=== PATIENT | female | born 2000 | race African-American/Black ===

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

== ENCOUNTER 2021-11-24 13:09 | Emergency (ER) | payer BC, SELFPAY ==
[2021-11-24 13:25] VITALS: BP 125/78; PULSE 72; RESP 18; TEMP 37; O2SAT 100; BMI 28.3
[2021-11-24 13:36] LABS: UTC Pregnancy Test, Urine Negative (Negative)
--- NOTE | 2021-11-24 13:43 | HMH.EDUTC ---
[facility] Disposition Clinical Impression: Gastroenteritis Disposition: Home, Self-Care Condition on Discharge: Good Instructions: Viral Gastroenteritis, DI for Viral Gastroenteritis -- Adult, Gastroenteritis Diet, Ondansetron Additional Instructions: Drink plenty of fluids. Take tylenol or ibuprofen for pain or fever. Take the zofran if you have continued nausea. Follow up with your regular doctor. GO TO THE ER FOR ANY WORSENING SYMPTOMS Prescriptions: Ondansetron [Zofran 4mg ODT] 4 mg PO Q8HP PRN #20 tab PRN Reason: Nausea Transmission Status: Received by [id number] Referrals: Provider,Referral, [Primary Care Provider] - Time of Disposition: 13:45 Medical Decision Making - Medical Records Medical records reviewed: No: I reviewed the patient's medical records. - Sami Inquiry Pt receiving controlled substance: No Vital Signs: 11/24/21 13:25 11/24/21 13:48 Temperature 98.6 F 98.6 F Temperature Source Oral Pulse Rate 72 Pulse Rate [Left Radial] 72 Respiratory Rate 18 18 Blood Pressure 125/78 Blood Pressure [Right Arm] 125/78 Blood Pressure Mean [Right Arm] 93 02 Sat by Pulse Oximetry 100 - Lab Data Lab Results 11/24/21 13:28: Tst Clinic Negative [facility] HPI - General Stated complaint: nausea/vomiting Time Seen by Provider: 11/24/21 13:30 Description of Symptoms (Recalled from Triage Doc. by RN): patient comes in today for test and std check. patient did have chlymadia previously and took the medicine, wants to recheck to see if she got rid of it. HEENT Symptoms (Recalled from RN notes): No Resp Symptoms (Recalled from RN notes): No Skin Symptoms (Recalled from RN notes): No MS Symptoms (Recalled from RN notes): No Functional Status (Recalled from RN notes): wnl - History of Present Illness Provider Complaint: She states that earlier today she had a period of gi upset, n/v. She denies any abdominal pain. She states that she is feeling better since since she got here. - Related Data Home Medications Medication Instructions Recorded Confirmed fluoxetine 10 mg capsule 10 mg PO ONCE 10/18/17 Previous Rx's Medication Instructions Recorded Ondansetron [Zofran 4mg ODT] 4 mg PO Q8HP PRN #20 tab 11/24/21 Allergies Allergy/AdvReac Type Severity Reaction Status Date / Time No Known Allergies Allergy Unverified 10/18/17 08:44 - Worker's Comp Is this a Worker's Comp case?: No [facility] History - Hepatitis A Screen Attestation statement:: This patient has been screened for Hepatitis A risk factors. I have reviewed the patient's past medical history: Yes Medical History: Reports:: Depression Denies:: Anxiety, Asthma, Diabetes Mellitus Type 1, Diabetes Mellitus Type 2, Hyperlipidemia, Hypertension Laterality Cases: Bilateral: Tonsillectomy Amputation: No - Social History Smoking Status: Never smoker # Packs/Day (cigarettes): 0 #Yrs smoked (if former smoker): 0 Alcohol Intake: never Alcohol Intake Frequency:: other - Psychiatric History Pschychiatric History:: Reports:: Depression Denies:: Anxiety Family Hx:: Diabetes ROS Obtained: Yes All systems reviewed & no additional complaints - Constitutional Constitutional: Denies chills, Denies fever(s), Reports poor appetite, Denies malaise - Eyes Eyes: Denies eye discharge - ENT Ears, Nose, Mouth, and Throat: Denies pain with swallowing, Denies sore throat - Cardiovascular Cardiovascular: Denies chest pain - Respiratory Respiratory: Denies chest congestion, Denies cough - Gastrointestinal Gastrointestingal: Reports: as per HPI - Musculoskeletal Musculoskeletal: Denies back pain - Integumentary/Breasts Skin/Breast: Denies rash Physical Exam - General General appearance: alert, in no apparent distress - Head Head exam: atraumatic, normocephalic, normal inspection - Eye Eye exam: Present: normal appearance, PERRL, EOMI - ENT
[2021-11-24 13:48] VITALS: BP 125/78; PULSE 72; RESP 18; TEMP 37
[2021-11-25 21:09] LABS: Neisseria gonorrhoeae, NAA Negative (Negative)
== END 2021-11-24 13:48 | disposition home or self-care (01) ==
PROVIDERS: Emergency Provider Nurse Practitioner Family
DX: K52.9 Noninfective gastroenteritis and colitis, unspecified (principal)
CPT/HCPCS: 81025; 87491; 87591; 99212; G0463

== ENCOUNTER 2025-04-16 11:33 | Emergency (ER) | payer BC, SELFPAY ==
--- OUTSIDE RECORDS SUMMARY | 2024-04-13 09:00 | XMS_ITS ---
Author Organization [facility] Address [address] [place] [address] Care Team Providers Care Director Of Vendor Management Name Role Phone NO PCP Primary Care Provider Joanna Rocha Unavailable REASON FOR VISIT Tuberculosis (TB) / PPD Test Encounters Encounter Location Date Provider Diagnosis [address] [facility] [address] [place] [id number] 04/13/2024 Joanna Moya Plan Of Treatment No Information Progress Notes * Bushra BRIGHTDOB:2000 (24 yo F)Acc No.[id number]:04/13/2024 Patient: Bushra KEITH Provider: Jose D Moya DNP :2000 A ge:23 Y S ex:Female Date:04/13/2024 External Visit ID:[id number] [facility] [facility] Pcp:NO PCP Subjective: * Chief Complaints: * 1 . Tuberculosis (TB) / PPD Test. * Medical History: Objective: * Vitals: Assessment: Plan: * Treatment: * Billing Information: * Visit Code: * Procedure Codes: Care Plan Details* * Electronic signature of Yudi Moya APRN on 04/16/2025 at 11:18 AM PANTOGRAPH OPERATOR Sign off status: Pending * Provider: Jose D Moya DNP Date: 06/13/2023 Generated for Printi ng/Faxing/eTransmitting on: 06/16/2024 11:18 AM PANTOGRAPH OPERATOR
--- OUTSIDE RECORDS SUMMARY | 2025-02-26 05:45 | XMS_ITS ---
Author Organization [facility] Address [address] [place] [address] Care Team Providers Care Newspaper Carrier Name Role Phone NO PCP Primary Care Provider Zamzam Abdi Unavailable [phone] REASON FOR VISIT ppd Encounters Encounter Location Date Provider Diagnosis [address] [place] [address] 02/26/2025 Zamzam Kenney Plan Of Treatment No Information Progress Notes * EMY, BushraDOB:2000 (24 yo F)Acc No.[id number]:02/26/2025 Progress Notes Patient: Bushra KEITH Provider: Abdulkadir Kenney APRN :2000 A ge:24 Y S ex:Female Date:02/26/2025 [address] [facility] Pcp:PCP Unknown Subjective: * Chief Complaints: * 1 . Ppd. * Medical History: Objective: * Vitals: Assessment: Plan: * Treatment: * Procedure Codes: N OSHO No Show Fee * Billing Information: * Visit Code: * Procedure Codes: NOSHO No Show Fee. Care Plan Details* * Sign off status: Completed true * Provider: Abdulkadir Kenney APRN Date: 0 02/26/2025 Generated for Monalisai ng/Fajoannag/eTransmitting on: 06/16/2024 11:17 AM BIOMEDICAL PHOTOGRAPHER
--- OUTSIDE RECORDS SUMMARY | 2025-02-27 05:45 | XMS_ITS ---
Author Organization [facility] Address [address] [place] [address] Care Team Providers Care Dressage Instructor Name Role Phone NO PCP Primary Care Provider Cary Brock Unavailable [phone] REASON FOR VISIT tb skin test Immunizations Vaccine Route Administration Date Status Comme nts PPD Aplisol ID Intradermal 02/27/2025 Administered Encounters Encounter Location Date Provider Diagnosis [facility] [address] [facility] [address] [place] [address] 02/27/2025 Cary Sanches PPD screening test Z11.1 Assessments Encounter Date Diagnosis (ICD Code) Assessment Notes Treatment Notes Treatment Clinical Notes Section Notes 02/27/2025 PPD screening test (ICD-10 - Z11.1) Patient reports they have never had a positive ppd reaction. Plan Of Treatment Treatment Notes Assessment Notes PPD screening test Patient reports they have never had a positive ppd reaction. Next Appt Details Follow Up: Please return to the clinic within 48-72 hours during the hours of business, Reason: Progress Notes * Bushra BRIGHTDOB:2000 (24 yo F)Acc No.[id number]:02/27/2025 Screening Visit Progress Not e Patient: Bushra KEITH Provider: Az Sanches :2000 A ge:24 Y S ex:Female Date:02/27/2025 Address:[address] [facility] Pcp:PCP Unknown Subjective: * Chief Complaints: * 1 . Tb skin test. * Medical History: Objective: * Vitals: Assessment: * Assessment: 1. P PD screening test - Z11.1 (Primary) Plan: * Treatment: * Immunizations: PPD Aplisol : 0.1 mL (Dose No:1) (Route: Intradermal) given by Cary Sanches APRN on Left Lower Forearm (PPD screening test) * Procedure Codes: 8 6580 TB SKIN TEST (APLISOL) * Follow Up: P lease return to the clinic within 48-72 hours during the hours of business * Billing Information: * Visit Code: * Procedure Codes: 94159 TB SKIN TEST (APLISOL). Care Plan Details* * Sign off status: Completed true * Provider: Az Sanches Date: 0 02/27/2025 Generated for Sergio ogden/Maria L/Marvin on: 06/16/2024 11:18 AM HISTORICAL ARCHEOLOGIST
--- OUTSIDE RECORDS SUMMARY | 2025-03-02 06:15 | XMS_ITS ---
Author Organization [facility] Address [address] [place] [address] Care Team Providers Care Director Gift Name Role Phone NO PCP Primary Care Provider Unavailmaribel e Joanna Moya Unavailable REASON FOR VISIT PPD read Encounters Encounter Location Date Provider Diagnosis [facility] [address] [facility] [address] [place] [address] 03/02/2025 Joanna Moya PPD screening test Z11.1 Assessments Encounter Date Diagnosis (ICD Code) Assessment Notes Treatment Notes Treatment Clinical Notes Section Notes 03/02/2025 PPD screening test (ICD-10 - Z11.1) Document patient's PPD results in their immunization history and import PPD results from the right chart panel (ICW). Scan PPD result form into patient's chart. Plan Of Treatment Next Appt Details Follow Up: As needed, Reason : Progress Notes * Bushra BRIGHTDOB:2000 (24 yo F)Acc No.[id number]:03/02/2025 Screening Visit Progress Not e Patient: Bushra KEITH Provider: Jose D Moya DNP :2000 A ge:24 Y S ex:Female Date:03/02/2025 Address:[address] [place], [place]-[address] Pcp:NO PCP Subjective: * Chief Complaints: * 1 . PPD read. * HPI: P PD Skin Test: Patient presents for a PPD skin test read. PPD Skin Test Results I mpression N egative, I nduration 0 mm, D ate 0 03/02/2025, T charlie 1 1:30 AM. * ROS: C ONSTITUTIONAL: feels well y es. * Medical History: Objective: * Vitals: * Examination: F ocused Exam: GENERAL: a lert and oriented x 4, no acute distress, dress appropriate for the environment & temp, well-groomed, appears well. Assessment: * Assessment: 1. P PD screening test - Z11.1 (Primary) Plan: * Treatment: * Procedure Codes: C ODER Sending to Distribution Systems Superintendent for Code Review * Follow Up: A s needed * Billing Information: * Visit Code: 98856 Office Visit, Est Pt., Level 1. * Procedure Codes: FINISHED GARMENT INSPECTOR Sending to Distribution Systems Superintendent for Code Review. Care Plan Details* Images * 03.02.25 id 03.02.25 PPD skin test resul ts * Sign off status: Completed true * Provider: Jose D Moya DNP Date: 0 03/02/2025 Generated for Sergio ogden/Maria L/Dharasmitting on: 1 06/16/2024 11:17 AM AUTOMOTIVE ARTIST History and Physical Notes * HPI (History of Present Illness) Category Sub-Category Detail Notes Category Not es PPD Skin Test PPD Skin Test Results Impression: Negative Induration: 0 mm Date: 03/02/2025 Time: 11:30 AM Examination Category Sub-Category Detail Notes Category Not es Focused Exam GENERAL: alert and orient ed x 4, no acute distress, dress appropriate for the environment & temp, well-groomed, appears well
--- OUTSIDE RECORDS SUMMARY | 2025-03-16 13:30 | XMS_ITS ---
Author Organization [facility] Address [address] [place] [address] Care Team Providers Care Mainspring Former Brace End Name Role Phone NO PCP Primary Care Provider Joanna Rocha Unavailable [phone] REASON FOR VISIT tb test Immunizations Vaccine Route Administration Date Status Comme nts PPD Aplisol ID Intradermal 03/16/2025 Administered Encounters Encounter Location Date Provider Diagnosis [facility] [address] [facility] [address] [place] [address] 03/16/2025 Joanna Moya PPD screening test Z11.1 Assessments Encounter Date Diagnosis (ICD Code) Assessment Notes Treatment Notes Treatment Clinical Notes Section Notes 03/16/2025 PPD screening test (ICD-10 - Z11.1) Patient reports they have never had a positive ppd reaction. Plan Of Treatment Treatment Notes Assessment Notes PPD screening test Patient reports they have never had a positive ppd reaction. Next Appt Details Follow Up: Please return to the clinic within 48-72 hours during the hours of business. Please return to the clinic within 48-72 hours during the hours of business, Reason: Progress Notes * Bushra BRIGHTDOB:2000 (24 yo F)Acc No.[id number]:03/16/2025 Progress Notes Patient: Bushra KEITH Provider: Jose D Moya DNP :2000 A ge:24 Y S ex:Female Date:03/16/2025 Address:[address] [place], [place] Pcp:NO PCP Subjective: * Chief Complaints: * 1 . Tb test. * Medical History: Objective: * Vitals: Assessment: * Assessment: 1. P PD screening test - Z11.1 (Primary) Plan: * Treatment: * Immunizations: PPD Aplisol : 0.1 mL (Dose No:1) (Route: Intradermal) given by Joanna Moya APRN on Left Arm (PPD screening test) ???Immunization record has been reviewed and updated. * Procedure Codes: 8 6580 TB SKIN TEST (APLISOL), CAR SALES ASSOCIATE Sending to Office Chair Assembler for Code Review * Follow Up: P lease return to the clinic within 48-72 hours during the hours of business. Please return to the clinic within 48-72 hours during the hours of business * Billing Information: * Visit Code: * Procedure Codes: 24090 TB SKIN TEST (APLISOL). CAR SALES ASSOCIATE Sending to Office Chair Assembler for Code Review. Care Plan Details* Images * ID [id number] * Sign off status: Completed true * Provider: Jose D Moya DNP Date: Generated for Sergio ogden/Maria L/Marvin on: 06/16/2024 11:18 AM LAYER OUT
--- OUTSIDE RECORDS SUMMARY | 2025-03-18 14:00 | XMS_ITS ---
Author Organization [facility] Address [address] [place] [address] Care Team Providers Care Tax Map Technician Name Role Phone NO PCP Primary Care Provider Cary Brock Unavailable [phone] REASON FOR VISIT PPD read Encounters Encounter Location Date Provider Diagnosis [facility] [address] [facility] [address] [place] [address] 03/18/2025 Cary Sanches PPD screening test Z11.1 Assessments Encounter Date Diagnosis (ICD Code) Assessment Notes Treatment Notes Treatment Clinical Notes Section Notes 03/18/2025 PPD screening test (ICD-10 - Z11.1) Document patient's PPD results in their immunization history and import PPD results from the right chart panel (ICW). Scan PPD result form into patient's chart. Plan Of Treatment Next Appt Details Follow Up: As needed, Reason : Progress Notes * Bushra BRIGHTDOB:2000 (24 yo F)Acc No.[id number]:03/18/2025 Screening Visit Progress Not e Patient: Bushra KEITH Provider: Az Sanches :2000 A ge:24 Y S ex:Female Date:03/18/2025 Address:[address] [facility] Pcp:NO PCP Subjective: * Chief Complaints: * 1 . PPD read. * HPI: P PD Skin Test: Patient presents for a PPD skin test read. PPD Skin Test Results I mpression N egative, I nduration 0 mm, D ate 1 , T charlie 0 7:12 PM. * ROS: C ONSTITUTIONAL: feels well y es. * Medical History: Objective: * Vitals: * Examination: F ocused Exam: GENERAL: a lert and oriented x 4, no acute distress, dress appropriate for the environment & temp, well-groomed, appears well. Assessment: * Assessment: 1. P PD screening test - Z11.1 (Primary) Plan: * Treatment: * Immunizations: PPD Aplisol (READING) Negative, Induration: 0 mm, Placement Date: 03/16/2025, Read by: Cary Sanches on 03/18/2025 at 7:12 PM (PPD screening test) * Follow Up: A s needed * Billing Information: * Visit Code: 44580 Office Visit, Est Pt., Level 1. * Procedure Codes: Care Plan Details* * Sign off status: Completed true * Provider: Az Sanches Date: Generated for Sergio ogden/Maria L/Elmaitting on: 06/16/2024 11:18 AM WET POUR MIXER History and Physical Notes * HPI (History of Present Illness) Category Sub-Category Detail Notes Category Not es PPD Skin Test PPD Skin Test Results Impression: Negative Induration: 0 mm Date: 03/18/2025 Time: 07:12 PM Examination Category Sub-Category Detail Notes Category Not es Focused Exam GENERAL: alert and orient ed x 4, no acute distress, dress appropriate for the environment & temp, well-groomed, appears well
[2025-04-16 11:40] VITALS: BP 142/89; PULSE 92; RESP 16; TEMP 37.1; O2SAT 100; BMI 30.2
[2025-04-16 11:42] VITALS: BP 142/89; PULSE 68; O2SAT 100
--- NOTE | 2025-04-16 11:44 | ED_ITS ---
<Statement entered by Jose D Duval MD - 04/16/25 15:36> I was consulted by the ADRIANNE, and we discussed the complexity of the problems being addressed. I approved the treatment and management plan for this patient's care in the emergency department, thus performing a substantive portion of the medical decision making. Jose D Duval MD, MAXIM, FACEP Discharge Plan Disposition Patient Disposition: Home, Self-Care Condition: Good Prescriptions Prescriptions: New ondansetron 4 mg tablet,disintegrating 4 mg PO Q6H PRN (Reason: nausea and vomiting) Qty: 10 0RF No Action fluoxetine [Prozac] 10 mg capsule 10 mg PO ONCE ondansetron 4 MG tablet,disintegrating 4 mg PO Q8HP PRN (Reason: Nausea) Qty: 20 0RF Referrals Follow up/Referrals: Tayler Forbes DO [Staff Physician, BACKUP ADMINISTRATOR] - See instructions Provider,Referral, [Primary Care Provider, Medical] - See instructions Activity Restrictions/Add. Instructions Additional Instructions/Restrictions: Please return to the emergency department with any worsening signs or symptoms. I recommend rest ice heat anti-inflammatory medication such as ibuprofen and Tylenol as needed for symptomatic relief. Please utilize antinausea medicine as needed for symptoms. Please follow-up with your primary care doctor or women's health provider in the upcoming days/weeks. Clinical Impressions Clinical Impression: Dysmenorrhea Instructions Patient Instructions: DI for Dysmenorrhea Print Language Print Language: Tamazight Discharge ED Provider: Jose D Duval General Adult HPI General Chief complaint: Abdominal Pain Stated complaint: lower right abd pain, vomiting, weak Time Seen by Provider: 04/16/25 11:44 Mode of Arrival: Ambulatory Source of Information: Patient Limitations: No Limitations History of Present Illness HPI narrative: 24-year-old female presents the emergency department with right lower quadrant abdominal pain/suprapubic pain, accompanied with vaginal bleeding, she describes that is in line with her current menstrual cycle, which she believes is today, no worsening/increased vaginal bleeding, but the pain is worse than normal. She describes as cramping, she did have an episode of nausea and vomiting with this which is abnormal. Patient denies any fever or chills does admit to fatigue, denies any chest pain shortness of breath, denies any constipation diarrhea hematuria melena hematochezia or hematemesis, denies any urinary type symptomatology, denies any vaginal discharge or vaginal symptomatology, denies any new sexual contacts or risky sexual behaviors, patient is a current everyday smoker (vapes), denies any alcohol or drug use. Patient has no other relevant past medical history takes no other medications daily at home. Does describe her periods as irregular , denies any concern for at this time. Initial triage vitals are unremarkable Please note that above description of symptoms, in this electronic medical record under categorization of recalled from ER triage doctor by RN are reflective of an initial nursing assessment, however, is not reflective of my full history and physical exam that was personally taken and clarified. Consequentially, this preceding description of symptoms, which may include the patient's categorized chief complaint in the EMR, do not reflect my personal clinical impression, and the ultimate description of history of present illness and patient stated complaints should be deferred to this section of the note. Unless stated otherwise or congruent with this section of the note, additional signs, symptoms, or incongruence should be interpreted as inaccurate with my clinical impression. Onset (ago): hour(s) Related Data Home Medications ?Medication ?Instructions ?Recorded ?Confirmed fluoxetine 10 mg capsule (Prozac) 10 mg PO ONCE Previous Rx's ?Medication ?Instructions ?Recorded ondansetron 4 mg disintegrating 4 mg PO Q8HP PRN Nause a #20 tabs 11/24/21 tablet ondansetron 4 mg disintegrating 4 mg PO Q6H PRN nausea and 04/16/25 tablet vomiting #10 tabs Allergies Allergy/AdvReac Type Severity Reaction Status Date / Time No Known Allergies Allergy Unverified 10/18/17 08:44 [facility] Disclaimer: The information contained in this section may have been updated after the patient was seen, as this information can be updated by other users. Social History Smoking Status: Current every day smoker alcohol intake: never current occupational status: other Travel in the last 8 weeks?: None Other Medical History Have you received the Flu Vaccine for this season: No Have you received the Pneumonia Vaccine: No ROS Obtained: Yes All systems reviewed & no additional complaints except as documented Physical Exam General General appearance: alert and in no apparent distress Head Head exam: atraumatic and normocephalic Eye Eye exam: Present PERRL and EOMI ENT ENT exam: Present mucous membranes moist Neck Neck exam: Present normal inspection Chest Chest inspection: Present normal inspection and symmetric chest wall rise Respiratory Respiratory exam: Present normal lung sounds bilaterally; Absent respiratory distress Cardiovascular Cardiovascular exam: Present regular rate and normal rhythm Abdominal Exam Abdominal exam: Present soft and tenderness; Absent guarding, rebound, rigidity, Rovsing's sign or tenderness at McBurney's Point Abdominal tenderness: Present RLQ, suprapubic and mild Extremities Exam Extremities exam: Present normal inspection Neurological Exam Neurological exam: Present alert and oriented X3 Psychiatric Psychiatric exam: Present normal affect Skin Skin exam: Present warm and dry Medical Decision Making Medical Records Medical records reviewed: Yes I reviewed the patient's medical records. Screening: Per USPSTF and CDC recommendations, given the prevalence of disease in our region, it is our hospital?s policy to screen for HIV and viral Hepatitis for all patients aged 18 and over and those with ongoing risk factors. Sami Inquiry Pt receiving controlled substance: No Sami was queried for this patient: No Vital Signs: 04/16/25 11:40 04/16/25 11:40 04/16/25 11:42 Temperature 98.8 F 98.8 F Temperature Source Oral Pulse Rate 92 H 68 Pulse Rate [Right] 92 H Respiratory Rate 16 16 Blood Pressure 142/89 H 142/89 H Blood Pressure [Right Arm] 142/89 H Blood Pressure Mean [Right Arm] 106 02 Sat by Pulse Oximetry 100 100 100 04/16/25 11:45 Temperature Temperature Source Pulse Rate 81 Pulse Rate [Right] Respiratory Rate Blood Pressure 129/89 Blood Pressure [Right Arm] Blood Pressure Mean [Right Arm] 02 Sat by Pulse Oximetry 100 Lab Data Lab results reviewed: Yes I reviewed the patient's lab results. Lab Results 04/16/25 11:38: Urine Color Yellow, Urine Appearance Clear, Urine pH 6.0, Ur Specific [place] 1.025, Urine Protein Negative, Urine Glucose (UA) Negative, Urine Ketones Negative, Urine Blood 1+ A, Urine Nitrate Negative, Urine Bilirubin Negative, Urine Urobilinogen 0.2, Ur Leukocyte Esterase Negative, Urine RBC 10-20, Urine WBC Occasional, Ur Squamous Epith Cells Occasional, Urine Bacteria None 04/16/25 11:55: WBC 14.7 H, RBC 5.45 H, Hgb 15.0, Hct 45.9, MCV 84.2, MCH 27.5, MCHC 32.7, RDW 12.7, Plt Count 308, MPV 10.3, Neut % (Auto) 79.5, Lymph % (Auto) 14.9, [place] % (Auto) 4.6, Eos % (Auto) 0.3, Baso % (Auto) 0.4, Neut # (Auto) 11.7 H, Lymph # (Auto) 2.2, [place] # (Auto) 0.7, Eos # (Auto) 0.0, Baso # (Auto) 0.1, PT 11.5, INR 1.04, Sodium 136, Potassium 4.1, Chloride 105, Carbon Dioxide 22, Anion Gap 13.1, BUN 12, Creatinine 0.80, Estimated Creat Clear 121, Estimated GFR 89, Est GFR ( Amer) 108, Glucose 96, Calcium 9.7, Total Bilirubin 0.5, AST 45 H, ALT 51, Alkaline Phosphatase 100, Total Protein 8.3 H, Albumin 4.9, Globulin 3.4 H, Albumin/Globulin Ratio 1.4, Lipase 203, Serum HCG, Qual Negative 04/16/25 11:55 04/16/25 11:55 Orders (Tests/Meds): ED MEDICATIONS Generic Name Dose Route Start Last Admin Trade Name Freq PRN Reason Stop Dose Admin Sodium Chloride 10 ml 04/16/25 13:03 04/16/25 13:04 Sodium Chloride 0.9% 10ml Syr (Rad Only) IV 05/16/25 13:02 10 ml NEEDED PRN Administration Maintain IV Site Discontinued Medications Generic Name Dose Route Start Last Admin Trade Name Freq PRN Reason Stop Dose Admin Iopamidol 75 ml 04/16/25 13:03 04/16/25 13:04 Iopamidol-370 (76%);100ml Bottle IV 04/16/25 13:04 75 ml ONCE ONE Administration Ketorolac Tromethamine 15 mg 04/16/25 11:52 04/16/25 12:04 Ketorolac 15mg/Ml Vial IV 04/16/25 11:53 15 mg ONCE ONE Administration Ondansetron HCl 4 mg 04/16/25 11:52 04/16/25 12:07 Ondansetron 4mg/2ml Vial IV 04/16/25 11:53 4 mg ONCE ONE Administration ORDERS Category Date Time Status CT abdomen pelvis w con Stat Cat Scan 04/16/25 11:51 Completed US transvaginal Stat Exams 04/16/25 11:51 Completed Complete Blood Count Auto Diff Stat Lab 04/16/25 11:55 Completed Comprehensive Metabolic Panel Stat Lab 04/16/25 11:55 Completed HCG Qualitative, Serum Stat Lab 04/16/25 11:55 Completed Lactic Acid Stat Lab 04/16/25 11:50 Ordered Lipase Stat Lab 04/16/25 11:55 Completed PT INR [Prothrombin Time INR] Stat Lab 04/16/25 11:55 Completed Urinalysis and Microscopic Stat Lab 04/16/25 11:38 Completed Medical Decision Narrative: 24-year-old female presents the emergency department with lower quadrant abdominal pain vaginal bleeding that started today with an episode of nausea and vomiting differential diagnose include but not limited to, primary dysmenorrhea, appendicitis, diverticulitis, acute UTI, acute pyelonephritis, nephrolithiasis, ureterolithiasis, ovarian cyst rupture, ovarian torsion, among others. I discussed this patient's case with the attending physician Dr. Duval Will obtain basic laboratory studies, hCG qualitative, lactic acid level lipase level coags urinalysis, will obtain CT head and pelvis with contrast, transvaginal ultrasound, will give 15 mg IV Toradol and 4 mg IV Zofran for pain and nausea. CBC is noted for mild leukocytosis of 14.7, otherwise unremarkable UA notable for 1+ hematuria, negative nitrites, negative leukocyte esterase, negative ketonuria. Coags within normal limits Microscopic analysis of the patient's urine is notable for 10-20 RBCs, occasional WBCs, squamous epithelial cells are occasional no urine bacteria. hCG qualitative negative. I reviewed the patient's transvaginal ultrasound along the corresponding radiologic report and was also able to speak to the reading radiologist Dr. Yang at approximately 1:06 PM, unfortunately venous waveforms were not obtained on this Doppler transvaginal ultrasound however the arterial waveforms are within normal limits making torsion less likely, states the venous waveforms of both ovaries not obtained on spectral Doppler imaging no ovarian torsion identified exam however he recommended clinical concern about ovarian torsion repeat imaging with both arterial and venous spectral Doppler waveforms recommended, otherwise no findings ovarian torsion on exam, otherwise unremarkable study, no large cystic structure. Low clinical concern for ovarian torsion with normal arterial waveforms no large cystic structure and non peritonitic abdomen on exam. I reviewed the patient's CT abdomen pelvis with contrast along the corresponding radiologic report, no evidence of bowel obstruction abdomen/pelvis small amount of retained fluid in the urinary May be related to patient menses. I discussed the results with the patient at the bedside patient most likely has primary dysmenorrhea, corresponding to her menstrual cycle, recommend ibuprofen Tylenol ice rest heat and other anti-inflammatory medication as needed for symptomatic relief. Will prescribe the patient 4 mg p.o. sublingual Zofran as needed for antiemetic. Patient was given strict ED return precautions. Patient was given instructions to follow-up with PCP and BACKUP ADMINISTRATOR in the coming days/weeks. Patient voiced understanding and agreed with the current treatment plan/discharge plan. Patient resting comfortably in the bed nonperitoneal take abdome, she has remained hemodynamically stable throughout her time in the emergency department. Critical Care Critical Care Time Critical Care Time: No
[2025-04-16 11:45] VITALS: BP 129/89; PULSE 81; O2SAT 100
--- NOTE | 2025-04-16 11:51 | CT_ITS ---
FINAL REPORT TECHNIQUE: Oral and IV contrast enhanced exam This study was performed with techniques to keep radiation doses as low as reasonably achievable, (ALARA). Individualized dose reduction techniques using automated exposure control or adjustment of mA and/or kV according to the patient''s size were employed. CLINICAL HISTORY: Vaginal bleeding, suprapubic/RLQ pain COMPARISON: None FINDINGS: Abdomen: Lung bases are clear. The gallbladder is unremarkable. Liver has an unremarkable CT appearance. The spleen, pancreas and adrenal glands are unremarkable. Kidneys show no mass or obstruction. No bowel obstruction or fluid collection is seen. Pelvis: The appendix is normal in appearance. Pelvic bowel loops are unremarkable. The ovaries are not well-visualized, obscured by adjacent small bowel. No ovarian enlargement is identified. There is a small amount of retained fluid in the uterine cavity, which may be related to menses, measuring up to 8 mm in thickness on sagittal imaging. IMPRESSION: 1. No evidence of bowel obstruction in the abdomen or pelvis. 2. Small amount of retained fluid in the uterine cavity, may be related to patient menses. Reviewed, Interpreted and Dictated by Imer Serna MD Transcribed by Elly Hickman Authenticated and . [facility]
--- NOTE | 2025-04-16 11:51 | US_ITS ---
PROCEDURE INFORMATION: Exam: US Pelvis, Transvaginal, Non-Obstetric Exam date and time: 04/16/2025 12:09 PM Age: 24 years old Clinical indication: Pelvic pain; Additional info: R/O ovarian torsion TECHNIQUE: Imaging protocol: Real-time transvaginal pelvic (non-obstetric) ultrasound with image documentation. Transvaginal imaging was used for better evaluation of the endometrium, adnexa, and/or cervix. COMPARISON: No relevant prior studies available. FINDINGS: Uterus: The uterus is normal in size measuring 7.0 x 4.1 x 4.5 cm (normal nulliparous 6-9 x 5 x 5 cm, multiparous 6-11 x 5 x 5 cm). The endometrium is normal in size and appearance measuring 11 mm in thickness (normal < 14 mm). Right ovary/adnexa: The right ovary is normal in size and appearance measuring 2.9 x 1.7 x 1.9 cm with a calculated volume of 5.0 mL (normal </= 11 mm). There is normal arterial flow on spectral Doppler imaging. There is normal color Doppler imaging. Left ovary/adnexa: The left ovary is normal in size and appearance measuring 2.9 x 2.3 x 0.8 cm with a calculated volume of 2.7 mL (normal </= 11 mm). 10 mm probable corpus luteal cyst, left ovary.There is normal color Doppler flow. There is normal arterial flow on spectral Doppler imaging. Urinary bladder: Urinary bladder is limited. Intraperitoneal space: Minimal pelvic free fluid. IMPRESSION: 1. Venous waveforms 4 both ovaries were not obtained with spectral Doppler imaging. No ovarian torsion identified on this exam. If there is continued concern about ovarian torsion, repeat imaging with both arterial and venous spectral Doppler waveforms is recommended. 2. Otherwise no findings of ovarian torsion on this exam. 3. Otherwise unremarkable study.
[2025-04-16 11:58] LABS: Microscopic, Urine URINE MICROSCOPIC (MICROSCOPIC)
[2025-04-16 12:04] LABS: Bilirubin,Urine Negative (Negative); Color,Urine YELLOW (Yellow); Glucose,Urine (UA) Negative (Negative); Ketones,Urine Negative (Negative); Leukocyte Esterase,Urine Negative (Negative); PH,Urine 6.0 (5.0-8.5); Protein,Urine Negative (Negative); Specific Gravity, Urine 1.025 (1.005-1.030); Urobilinogen,Urine 0.2 EU/dl (0.2)
[2025-04-16] MEDS: KETOROLAC 15MG/ML VIAL 15 MG IV (12:04)
[2025-04-16 12:05] LABS: Hematocrit 45.9 % (37.0-47.0); Hemoglobin 15.0 g/dL (12.2-16.2); Immature Granulocytes % 0.3 %; Mean Corpuscular HGB Conc 32.7 g/dL (31.8-35.4); Mean Corpuscular Hemoglobin 27.5 pg (27.0-31.2); Mean Corpuscular Volume 84.2 fl (81-99); Nucleated Red Blood Cells % 0 %; Platelet Count 308 K/mm3 (142-424); Red Blood Count 5.45 M/mm3 (4.20-5.40); Red Cell Distribution Width-SD 38.7 fL; White Blood Count 14.7 K/mm3 (4.8-10.8)
[2025-04-16] MEDS: ONDANSETRON 4MG/2ML VIAL 4 MG IV (12:07)
[2025-04-16 12:16] LABS: Alanine Aminotransferase 51 U/L (12-78); Albumin Level 4.9 g/dl (3.5-5.0); Albumin/Globulin Ratio 1.4 (1.1-1.8); Alkaline Phosphatase 100 U/L (38-126); Anion Gap 13.1 mEq/L (5-15); Aspartate Amino Transferase 45 U/L (14-36); Bilirubin,Total 0.5 mg/dl (0.2-1.3); Blood Urea Nitrogen 12 mg/dl (7-17); Calcium 9.7 mg/dl (8.4-10.2); Carbon Dioxide 22 mmol/L (22.0-30.0); Chloride 105 mmol/L (98-107); Creatinine Clearance Estimated 121 mL/min (50-200); Creatinine,Serum 0.80 mg/dl (0.52-1.04); Estimated Glomerular Filt Rate 89 ml/min (>60); GFR (African American) 108 ML/MIN (>60); Globulin 3.4 g/dL (1.3-3.2); Glucose 96 mg/dl (74-100); INR 1.04 (0.9-1.1); Lipase 203 U/L (23-300); Potassium 4.1 mmoL/L (3.5-5.1); Prothrombin Time 11.5 seconds (10.1-12.5); Sodium 136 mmol/L (136-145); Total Protein,Serum 8.3 g/dl (6.3-8.2)
[2025-04-16 12:18] LABS: HCG Qualitative, Serum Negative (Negative)
--- OUTSIDE RECORDS SUMMARY | 2025-04-16 12:18 | XMS_ITS | Patient Health Record ---
Author Organization [facility] Address [address] [place] [address] Care Team Providers Care Ui Architect Name Role Phone Juan David Quiroz Primary Care Provider Zaynab Godinez Unavailable [phone] Juan David Quiroz Unavailable Unavailable Reason For Referral No Information Problems Problem Type SNOMED Code ICD Code Onset Dates Problem Status W/U Status Risk Notes Problem Acanthosis nigricans (797273755) Acanthosis nigricans (L83) Active confirmed Problem Obese class I (finding) (981882116113541 ) Obesity (BMI 30.0-34.9) (E66.9) Active confirmed Problem Major depression, single episode (87963963) Adolescent depression (F32.9) Active confirmed Problem Gastric reflux (399609106) Gastric reflux (K21.9) Active confirmed Problem Tonsillar hypertrophy (52293701) Tonsillar hypertrophy (J35.1) Active confirmed Problem Generalized anxiety disorder (01708644) Anxiety, generalized (F41.1) Active confirmed Problem Deliberate self-cutting (600886085) Deliberate self-cutting (Z72.89) Active confirmed Problem Tonsillith (1888044) Tonsillith (J35.8) Active confirmed Problem Pes planus (38316781) Pes planus of left foot (M21.42) Active confirmed Plan Of Treatment Pending Test Test Name Order Date H-FREE T4 01/18/2017 Insurance Providers Payer Name Payer Address Payer Phone Subscriber Number Group Number Insured Name Patient Relationship to Insured Coverage Start Date Coverage End Date [employer] [address] [place] [address] [phone] [id number] Bushra Jernigan Self - patient is the insured [facility] [address] [address] [place] [phone] [id number] Bushra Jernigan Self - patient is the insured Medical (General) History Medical History History ICD Code Depression Surgical History Surgery Date(Month/Year) T&A 04/2017
--- OUTSIDE RECORDS SUMMARY | 2025-04-16 12:18 | XMS_ITS | Clinical Summary ---
Author Organization [facility] Address [address] [place] [id number] Care Team Providers Care Medical Education Coordinator Name Role Phone Melissa Walters PA-C Primary Care Provider [phone] Allergies No known active allergies Medications No known medications Active Problems Problem Noted Date Diagnosed Date Acute vaginitis 02/22/2023 Abnormal uterine bleeding (AUB) 10/26/2021 Overview (10/26/2021): U/S normal, endometrium- 6 mm. UPT negative. TSH done 10/26/21. STD screen collected. Discussed options for management. Desires kyleena, risk/benefit/SE reviewed and brochure given. Place on menses, advised consistent condom use. Immunizations Immunization Administration Dates Next Due DTaP, Unspecified 01/07/2007, 3,09/04/2002,05/22/20 02,03/17/2002 FluMist 2-49yrs 04/21/2014 FluMist 2-49yrs (Nasal) 03/30/2011,03/25/2010 Hep A, 2 Dose 07/12/2017,05/29/2006 Hep B, Adolescent or Pediatric 01/09/2003,2002,03/17/2002 HiB 09/04/2005, 3,05/22/2002,03/17/20 02 Hpv9 01/15/2018 IPV 01/07/2007, 3,05/22/2002,03/17/20 02 MCV4 Unspecified 12/03/2012 MMR 01/07/2007,01/09/2003 Meningococcal MCV4P (Menactra) 01/15/2018 PEDS-Pneumococcal Conjugate (PCV7) 05/29/2006, Tdap 03/19/2024,12/03/2012 Varicella 01/07/2007,03/30/2003 Family History Medical History Relation Name Comments Colon cancer Maternal Grandfather Severiano dx in 6 0s Hyperlipidemia Maternal Grandfather Severiano Hyperlipidemia Maternal Grandmother Teresa Dowling Diabetes Paternal Grandfather Severiano Breast cancer Neg Hx Ovarian cancer Neg Hx Relation Name Status Comments Maternal Grandfather Severiano Alive Maternal Grandmother Teresa Dowling Alive Mother Юлия Bright Paternal Grandfather Severiano Social History Tobacco Use Types Packs/Day Years Used Date Smoking Tobacco: Every Day Cigarettes 0.3 5.2 Smokeless Tobacco: Never Tobacco Cessation:Ready to Q uit: Not Asked; Counseling Given: Not Answered Alcohol Use Standard Drinks/Week Comments Not Currently 0 (1 standard drink = 0.6 oz pure alcohol) Occasional wine cooler every 2-weeks PHQ-2 Answer Date Recorded Patient Health Questionnaire-2 Score 0 07/07/2024 Comments No Sex and Gender Information Value Date Recorded Sex Assigned at Not on file Legal Sex Female 7:02 PM EST Gender Identity Not on file Sexual Orientation Not on file Last Filed Vital Signs Vital Sign Reading Time Taken Comments Blood Pressure 108/64 07/16/2024 10:17 AM EST Pulse 88 07/16/2024 10:17 AM EST Temperature 36.8 C (98.2 F) 07/16/2024 10:17 AM EST Respiratory Rate 16 07/16/2024 10:17 AM EST Oxygen Saturation 99% 07/16/2024 10:17 AM EST Inhaled Oxygen Concentration - - Weight 73 kg (161 lb) 07/16/2024 10:17 AM EST Height 152.4 cm (5') 07/16/2024 10:17 AM EST Body Mass Index 31.44 07/16/2024 10:17 AM EST Plan of Treatment Health Maintenance Due Date Last Done Comments MENINGOCOCCAL B VACCINE (1 of 2 - Standard) 2017 HPV VACCINES (2 - 3-dose series) 02/12/2018 01/15/2018 ANNUAL PHYSICAL 10/19/2021 PAP SMEAR 02/29/2024 02/28/2023 Annual Gynecologic Pelvic and Breast Exam 03/01/2024 02/28/2023 INFLUENZA VACCINE 01/02/2025 04/21/2014, , 03/25/2010 Pneumococcal Vaccine 0-49 (1 of 2 - PCV) 07/10/2025 05/29/2006, 05/22/2002 Postponed from 2020 (Patient Refused) CHLAMYDIA SCREENING 07/16/2025 07/16/2024, 02/28/2023, 02/22/2023, Additional history exists TDAP/TD VACCINES (3 - Td or Tdap) 03/19/2034 03/19/2024, 12/03/2012 HEPATITIS C SCREENING Completed 02/22/2023 Procedures Procedure Name Priority Date/Time Associated Diagnosis Comments NUSWAB VG+ Routine 07/16/2024 11:30 AM EST Vaginal discharge Vaginal odor LIQUID-BASED PAP SMEAR WITH HPV GENOTYPING IF ASCUS, [facility] (TESSY,COR,MAD) Routine 02/28/2023 2:39 PM EDT Well woman exam with routine gynecological exam HEPATITIS PANEL, ACUTE Routine 02/22/2023 11:55 AM EDT Possible exposure to STD from Last 3 Months or Most Recently Relevant to Health Maintenance Results * (ABNORMAL) NuSwab VG+ - Swab, Vagina (07/16/2024 11:30 AM EST) Atopobium Vaginae High - 2(A) Score 2024 5:08 PM EST [facility] BVAB 2 High - 2(A) Score 07/19/2024 5:08 PM EST [facility] Megasphaera 1 High - 2(A) Score 07/19/2024 5:08 PM EST [facility] Comment: Calculate total score by adding the 3 individual bacterial vaginosis (BV) marker scores together. Total score is interpreted as follows: Total score 0-1: Indicates the absence of BV. Total score 2: Indeterminate for BV. Additional clinical data should be evaluated to establish a diagnosis. Total score 3-6: Indicates the presence of BV. Galina Albicans, GAGAN Negative Negative 07/19/2024 5:08 PM EST [facility] Galina Glabrata, GAGAN Negative Negative 07/19/2024 5:08 PM EST [facility] Trichomonas vaginosis Negative Negative 07/19/2024 5:08 PM EST [facility] Chlamydia trachomatis, GAGAN Negative Negative 07/19/2024 5:08 PM EST [facility] Neisseria gonorrhoeae, GAGAN Negative Negative 07/19/2024 5:08 PM EST [facility] Swab Vaginal structure / Unknown Collection / Unknown 07/16/2024 11:30 AM EST 07/16/2024 11:30 AM EST Narrative [facility] - 07/19/2024 5:08 PM EST Test(s) 979578- Atopobium vaginae; 207335- BVAB 2; 999621- Megasphaera 1 was developed and its performance characteristics determined by [facility]. It has not been cleared or approved by the Food and Drug Administration. Test(s) 463580-Kfygohx albicans, GAGAN; 086328-Lorburl glabrata, GAGAN was developed and its performance characteristics determined by [facility]. It has not been cleared or approved by the Food and Drug Administration. Performed at: 01 - [address] [id number] Biomaterials Engineer: Ana María Gandhi MD, Phone: [phone] Melissa Walters PA-C MICROBIOLOGY - GENERAL ORDE ALEK Final Result Performing Organization Address City/State/[facility] de Phone Number [facility] [address] [place] [address], * LIQUID-BASED PAP SMEAR WITH HPV GENOTYPING IF ASCUS (TESSY,COR,MAD) (02/28/2023 2:39 PM EDT) Reference Lab Report [facility] [address] [place] [address] or [phone] Vijay Ortiz M.D., [place] PATIENT NAME LABORATORY NO. [address] BUSH[place] BRIGHT [id number] AGE SEX SSN CLIENT REF # [facility] 22 2000 F [id number] [address] REQUESTING Todd. [place] [address] JESÚS JOSHI DATE COLLECTED DATE RECEIVED DATE REPORTED 02/28/2023 02/28/2023 03/06/2023 ThinPrep Pap with Cytyc Imaging DIAGNOSIS: Epithelial cell abnormality. (ASC) Atypical squamous cells of undetermined significance. Professional interpretation rendered by Drew Norwood M.D.,F.C.A.P. at [facility], [employer] [address] [place] [address]. SPECIMEN ADEQUACY: SATISFACTORY FOR EVALUATION Transformation zone is present. SOURCE OF SPECIMEN: CERVICAL/ENDOCERVI AMITA SLIDES: 1 CLINICAL HISTORY: Well woman exam with routine gynecological exam Vaginitis HPV HR-HPV POOL: Negative The Aptima HPV assay is an in vitro nucleic acid amplification test for the qualitative detection of E6/E7 viral messenger RNA from 14 high risk types of HPV in cervical specimens. The high risk HPV types detected include: 16, 18, 31, 33, 35, 39, 45, 51, 52, 56, 58, 59, 66, 68 Chlamydia / Gonorrhea CHLAMYDIA TRACHOMATIS: Negative NEISSERIA GONORRHOEAE: Negative The Aptima Combo 2 assay is a target amplification nucleic acid probe test that utilizes target capture for the in vitro qualitative detection and differentiation of ribosomal RNA from Chlamydia trachomatis and Neisseria gonorrhoeae to aid in the diagnosis of chlamdial and gonococcal disease using the [place] system. Sendout Ancillary Vaginosis Tests ATOPOBIUM VAGINAE: Positive BVAB2: Positive GALINA GLABRATA: Negative GALINA PARAPSILOSIS: Negative GALINA TROPICALIS: Negative MEGASPHAERA 1: Positive MDL GALINA ALBICANS: Negative HSV-1: Negative HSV-2: Negative COMMENT: The above results are intended for medical diagnosis and treatment purposes only. Results from this assay (s) should be interpreted in conjunction with other laboratory and clinical data. The test is not intended to differentiate carriers of the organism from those with active infections. Therapeutic success or failure cannot be assessed using this test because DNA may persist following antimicrobial therapy. Nucleic acid base changes or mutations can result in false negative reactions. This test was developed and its performance characteristics determined by [facility] It has not been cleared or approved by the U.S. Food and Drug Administration. The FDA has determined that such clearance or approval is not necessary. [facility] is located in [place], [place] CUSTOMER SPECIALIST: MAYNOR SOLORZANO (ASCP) REVIEWED, DIAGNOSED AND ELECTRONICALLY SIGNED BY: Drew Norwood M.D.,F.C.A.P. CPT CODES: 74702, 92791, 84201, 40850, 05335, [id number], [id number], [id number] 03/06/2023 2:00 PM EDT [facility] ThinPrep Vial Collection / Unknown 02/28/2023 2:39 PM EDT 02/28/2023 2:39 PM EDT Jseús Joshi APRN PATHOLOGY/CYTOLOGY O RDERABLES Final Result Performing Organization Address City/[facility]/ZIP Co de Phone Number [facility]
[address] [place] [address], * Hepatitis Panel, Acute (02/22/2023 11:55 AM EDT) Hep A IgM Negative Negative [facility] Hepatitis B Surface Ag Negative Negative [facility] Hep B Core IgM Negative Negative [facility] Hepatitis C Ab Non Reactive Non Reactive [facility] Blood 02/22/2023 11:5 5 AM EDT 02/22/2023 Narrative [facility] - 02/23/2023 10:11 AM EDT Performed at: - [facility] [id number] Biomaterials Engineer: Carlos Borden PhD, Phone: [phone] Kateryna Corea PATHOLOGIST LAB BLOOD ORDERABLES Final Resu lt Performing Organization Address City/[facility]/ZIP Co de Phone Number [facility] ([facility]) [address] [place] [address], [place] [phone] [facility] [address] [place] [id number], from Last 3 Months or Most Recently Relevant to Health Maintenance Insurance [facility] [employer] PPO [employer] Care Teams Medical Education Coordinator Relationship Specialty Start Date End Date Melissa Walters PA-C [address] [place] [address] PCP - General Emergency Medicine 07/07/24 06/04/25
--- OUTSIDE RECORDS SUMMARY | 2025-04-16 12:18 | XMS_ITS | Clinical Summary ---
Author Organization [facility] Address [address] [place] [address] Care Team Providers Care Store Stock Help Name Role Phone Juan David Quiroz MD Primary Care Provider Allergies No known active allergies Medications hydrOXYzine pamoate (Vistaril) 25 MG capsule Take 1 capsule (25 mg) by mouth every 6 (six) hours if needed for anxiety for up to 7 days. 28 capsule 03/20/2023 Active Active Problems Problem Noted Date Diagnosed Date Anxiety disorder, unspecified 09/19/2017 Depressive disorder 09/19/2017 03/20/2023 Family History Medical History Relation Name Comments Asthma Brother Relation Name Status Comments Brother Social History Tobacco Use Types Packs/Day Years Used Date Smoking Tobacco: Never Smokeless Tobacco: Never Alcohol Use Standard Drinks/Week Comments No 0 (1 standard drink = 0.6 oz pur e alcohol) Comments Unknown Sex and Gender Information Value Date Recorded Sex Assigned at Female 04/02/2023 4:46 PM EDT Legal Sex Female 6:49 PM EDT Gender Identity Female 04/02/2023 4:46 PM EDT Sexual Orientation Not on file Last Filed Vital Signs Vital Sign Reading Time Taken Comments Blood Pressure 115/72 04/02/2023 4:14 PM EDT Pulse 78 04/02/2023 4:14 PM EDT Temperature 37.1 C (98.7 F) 04/02/2023 4:14 PM EDT Respiratory Rate 16 04/02/2023 4:14 PM EDT Oxygen Saturation 96% 04/02/2023 4:14 PM EDT Inhaled Oxygen Concentration - - Weight 68.8 kg (151 lb 10.8 oz) 04/02/2023 4:14 PM EDT Height 152.4 cm (5') 04/02/2023 4:14 PM EDT Body Mass Index 29.62 04/02/2023 4:14 PM EDT Plan of Treatment Health Maintenance Due Date Last Done Comments [facility]-Depression Screening 2001 [facility]-HIV Screening 2001 [facility]-Hepatitis C Screening 2001 [facility]-/Child/Adol SDOH Screenings 2001 [facility]-Obesity Intervention 12/24/2007 HPV Vaccines (2 - 3-dose series) 02/12/2018 01/15/2018 [facility]- SDOH Screenings 12/24/2019 [facility]-Adult SDOH Screenings 12/24/2019 [facility]-DTaP,Tdap,and Td Vaccines (7 - Td or Tdap) 12/03/2022 12/03/2012, 01/07/2007, 03/30/2003, Additional history exists [id number] Vaccine (1 - season) 2025 [facility]-Influenza Vaccine (#1) 02/02/202504/21, 03/30/2011, 03/25/2010 [facility]-Pap Smear 02/28/2026 02/28/2023 [facility]-Zoster Vaccines (1 of 2) 12/24/2051 01/07/2007, 03/30/2003 [facility]-Hepatitis B Vaccines Completed 003, 09/04/2002, 03/17/2002 [facility]-HIB Vaccines Completed 09/04/2005, , 05/22/2002, Additional history exists [facility]-Pneumococcal Vaccine: Pediatrics (0 to 5 Years) and At-Risk Patients (6 to 49 Years) Aged Out 05/29/2006, 05/22/2002 No longer eligibl e based on patient's age to complete this topic [facility]-IPV Vaccines Completed 01/07/2007, 08/2002, 05/22/2002, Additional history exists [facility]-Varicella Vaccines Completed 01/07/2007, 2002 [facility]-Hepatitis A Vaccines Completed 07/12/2017, 05/05 [facility]-Rotavirus Vaccines Aged Out No lo nger eligible based on patient's age to complete this topic Insurance [facility] Care Teams Store Stock Help Relationship Specialty Start Date End Date Juan David Quiroz MD [address] [place] [address] PCP - General 10/15/20
[2025-04-16 12:19] LABS: WBC,Urine Occasional #/hpf (0-3)
--- OUTSIDE RECORDS SUMMARY | 2025-04-16 12:19 | XMS_ITS | Patient Health Record ---
Author Organization [facility] Address [address] [place] [address] Care Team Providers Care Cmm Operator Name Role Phone NO PCP Primary Care Provider UnavailCary Sheffield Unavailable [phone] Joanna Moya Unavailable Zamzam Kenney Unavailable [phone] Allergies No Known Allergies Results Component Value Reference Range Notes STI INCREASED RISK PANEL Reviewed date:11/27/2024 01:20:02 PM Interpretation:Negative Performing Lab:[facility] [place] [id number] [facility] , [id number] Juanjo Chavez M.D.,PhD Notes/Report: 0 Received Date: CHLAMYDIA TRACHOMATIS RNA, TMA, UROGENITAL Not Detected Not Detected NEISSERIA GONORRHOEAE RNA, TMA, UROGENITAL Not Detected Not Detected TRICHOMONAS VAGINALIS RNA, QL TMA Not Detected Not Detected MYCOPLASMA GENITALIUM, rRNA, TMA Not Detected Not Detected ASSAY DETAILS See Note The analytical performance characteristics of T. vaginalis when testing male samples have been determined by [facility] [place]. The modifications have not been cleared or approved by the FDA. This modification has been validated pursuant to the CLIA regulations and is used for clinical purposes. For additional information, please refer to https://education.[facility].com/faq/KBK518 https://education.[facility].com/faq/ Trichomonastma These links are being provided for informational/ educational purposes only). Reason For Referral No Information Immunizations Vaccine Route Administration Date Status Comme nts TDAP: BOOSTRIX IM Intramuscular 03/19/2024 Administered PPD Aplisol ID Intradermal 03/19/2024 Administered PPD Aplisol ID Intradermal 04/11/2024 Administered PPD Aplisol ID Intradermal 02/27/2025 Administered PPD Aplisol ID Intradermal 03/16/2025 Administered Social History Tobacco Use: Social History Observation Description Date Details (start date - stop date) Unknown Tobacco Control (Standard) Question Answer Notes Tobacco use: Uses tobacco in other forms Additional Findings: Tobacco user Cigar smoker Problems Problem Type SNOMED Code ICD Code Onset Dates Problem Status W/U Status Risk Notes Problem Tobacco user (511453760) 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 Vital Signs Temperature 98.6 degrees Fahrenheit 11/21/2024 Respiratory Rate 18 /min 11/21/2024 Blood pressure diastolic 72 mm Hg 11/21/2024 Height 060 in 11/21/2024 Blood pressure systolic 112 mm Hg 11/21/2024 Weight 0155 lbs 11/21/2024 BMI 30.27 kg/m2 11/21/2024 Encounters Encounter Location Date Provider Diagnosis [facility] [address] [place] [address] 11/21/2024 Cary Sanches STD exposure Z20.2 and Cigar smoker unmotivated to quit F17.[address] [place] [address] 02/26/2025 Zamzam Kenney [address] [place] [address] [address] [place] [address] 02/27/2025 Cary Sanches PPD screening test Z11.[id number] [place] [address] [place] [address] 03/02/2025 Joanna Moya PPD screening test Z11.[id number] [place] [address] [address] [place] [address] 03/16/2025 Joanna Tapiaer PPD screening test Z11.[address] [place] [address] [address] [place] [address] 03/18/2025 Cary Sanches PPD screening test Z11.1 Assessments Encounter Date Diagnosis (ICD Code) Assessment Notes Treatment Notes Treatment Clinical Notes Section Notes 11/21/2024 STD exposure (ICD-10 - Z20.2) 11/21/2024 Cigar smoker unmotivated to quit (ICD-10 - F17.290) 02/27/2025 PPD screening test (ICD-10 - Z11.1) Patient reports they have never had a positive ppd reaction. 03/02/2025 PPD screening test (ICD-10 - Z11.1) Document patient's PPD results in their immunization history and import PPD results from the right chart panel (ICW). Scan PPD result form into patient's chart. 03/16/2025 PPD screening test (ICD-10 - Z11.1) Patient reports they have never had a positive ppd reaction. 03/18/2025 PPD screening test (ICD-10 - Z11.1) Document patient's PPD results in their immunization history and import PPD results from the right chart panel (ICW). Scan PPD result form into patient's chart. Plan Of Treatment No Information Insurance Providers Payer Name Payer Address Payer Phone Subscriber Number Group Number Insured Name Patient Relationship to Insured Coverage Start Date Coverage End Date [facility] [address] [place] [address] [id number] Bushra Jernigan Self - patient is the insured [facility] [address] [place] [address] [id number] Bushra Jernigan Self - patient is the insured Medical (General) History Medical History History ICD Code chlamydia Surgical History Surgery Date(Month/Year) tonsillectomy
[2025-04-16 12:20] LABS: Squamous Epithelial Cell,Urine Occasional #/hpf (0-5)
[2025-04-16] MEDS: SODIUM CHLORIDE 0.9% 10ML SYR (RAD ONLY) 10 ML IV (13:04)
[2025-04-16] MEDS: IOPAMIDOL-370 (76%);100ML BOTTLE 75 ML IV (13:04)
[2025-04-16 14:06] VITALS: BP 128/63; PULSE 67; RESP 16; TEMP 37.1
== END 2025-04-16 14:10 | disposition home or self-care (01) ==
PROVIDERS: Physician Assistant; Emergency Provider Student in an Organized Health Care Education/Training Program
DX: K52.9 Noninfective gastroenteritis and colitis, unspecified (principal); N94.6 Dysmenorrhea, unspecified
CPT/HCPCS: 74177; 76830; 80053; 81001; 83690; 84703; 85025; 85610; 96374; 96375; 99285; J1885; J2405; Q9967